=== PATIENT | female | born 1975 | race Caucasian/White ===

== ENCOUNTER → 2016-09-04 | Outpatient (CLI) | payer BC ==
[~2016-09-04] VITALS: Ht 160 cm; Wt 72.7 kg
[~2016-09-04] MED LIST: ALEVE 220MG220 MG PO; CLARITIN 1010 MG/TAB PO; NEURONTIN100 MG/CAP PO; NORCO 325 MG-51 TAB PO; ROBAXIN 75750 MG/TAB PO; ZYRTEC 10MG10 MG PO
[2016-09-04 07:32] VITALS: BP 130/91; PULSE 77
[2016-09-04 08:40] VITALS: BP 123/83; PULSE 85
== END ==
LOC: COL.RAD 07:00
DX: M50.023 Cervical disc disorder at C6-C7 level with myelopathy (principal)
CPT/HCPCS: J1100

== ENCOUNTER → 2017-01-10 | Outpatient (CLI) | payer BC | LOC: COL.RAD 10:29 | DX: Z02.89 Encounter for other administrative examinations (principal) ==

== ENCOUNTER → 2017-01-16 | Outpatient (CLI) | payer BC | LOC: COL.RAD 12:00 | DX: R94.6 Abnormal results of thyroid function studies (principal) ==

== ENCOUNTER 2017-05-03 14:29 | Emergency (ER) | payer BC ==
[~2017-05-03] VITALS: Ht 160 cm; Wt 64.1 kg
[2017-05-03 15:31] LABS: COLLECTION METHOD CLEAN CATCH
[2017-05-03 15:46] LABS: CALCIUM 9.2 mg/dL (8.4-10.2); CREATININE, serum 0.72 mg/dL (0.52-1.25); POTASSIUM 4.3 mmol/L (3.4-5.0)
[2017-05-03 15:54] LABS: BASO % 0.6 % (0.0-2.0); EOS # 0.1 (0.0-0.7); EOS % 0.8 % (0-4.0); GRAN # 4.7 (1.4-6.5); GRAN % 70.2 % (42.2-75.2); HEMOGLOBIN 12.5 g/dl (12.5-16.0); LYMPH # 1.3 (1.2-3.4); LYMPH % 19.5 % (20.0-51.0); MEAN CELL VOLUME 92 fl (80.0-100.0); MEAN CORPUSCULAR HEMOGLOBIN 32 pg (27.0-31.0); MEAN CORPUSCULAR HGB CONC 34 g/dl (33.0-37.0); MEAN PLATELET VOLUME 11.1 fl (7.4-10.4); MONO # 0.6 (0.1-0.6); MONO % 8.7 % (1.7-9.3); PLATELET COUNT 149 K/mm3 (130-400); RED BLOOD COUNT 3.96 M/mm3 (4.10-5.30); WHITE BLOOD COUNT 6.7 K/mm3 (4.8-10.8)
[2017-05-03 16:00] LABS: HEMATOCRIT 36.6 % (37.0-47.0)
[2017-05-03 16:01] LABS: PH 6 (5-8); SQUAMOUS EPITHELIAL None Seen /hpf; URINE APPEARANCE Clear; URINE BACTERIA None Seen /hpf; URINE BILIRUBIN Negative (NEGATIVE); URINE BLOOD Negative (NEGATIVE); URINE COLOR Straw; URINE GLUCOSE Negative (NEGATIVE); URINE KETONE Negative (NEGATIVE); URINE LEUKOCYTE ESTERASE Negative (NEGATIVE); URINE PROTEIN(semi-quant) Negative (NEGATIVE); URINE RBC None Seen /hpf; URINE UROBILINOGEN Negative (NEGATIVE); URINE WBC None Seen /hpf
[2017-05-03] MEDS ORDERED: FLAGYL500 MG PO (17:28)
[2017-05-03] MEDS ORDERED: CIPRO 500MG TA500 MG PO (17:28)
[2017-05-03] MEDS ORDERED: NORCO 325 MG-51 TAB PO (17:39)
[2017-05-03 17:47] VITALS: BP 129/84; PULSE 111; TEMP 98.3
== END 2017-05-03 17:49 | disposition home or self-care (01) ==
LOC: COL.ER 14:29
PROVIDERS: Emergency Medicine
DX: K52.9 Noninfective gastroenteritis and colitis, unspecified (principal); K64.9 Unspecified hemorrhoids; F17.210 Nicotine dependence, cigarettes, uncomplicated
CPT/HCPCS: Q9967

== ENCOUNTER 2017-07-20 23:11 | Emergency (ER) | payer BC ==
[~2017-07-20] VITALS: Ht 160 cm; Wt 64.1 kg
[~2017-07-20 23:11] MED LIST changes: +CIPRO 500MG TA500 MG PO; +FLAGYL500 MG PO
[2017-07-20 23:15] VITALS: BP 135/90; TEMP 98.5
[2017-07-21] MEDS ORDERED: CEPHALEXIN500 M1 PO (00:10)
[2017-07-21] MEDS ORDERED: SEPTRA DS 8001 TAB PO (00:10)
[2017-07-21 00:49] VITALS: PULSE 65
== END 2017-07-21 00:50 | disposition home or self-care (01) ==
LOC: COL.ER 23:11
DX: L03.011 Cellulitis of right finger (principal); F17.210 Nicotine dependence, cigarettes, uncomplicated

== ENCOUNTER → 2018-06-19 | Outpatient (CLI) | payer BC ==
[~2018-06-19] MED LIST changes: +CEPHALEXIN500 M1 PO; +SEPTRA DS 8001 TAB PO
== END ==
LOC: MC.RAD 14:00
DX: Z12.31 Encounter for screening mammogram for malignant neoplasm of breast (principal)

== ENCOUNTER 2018-06-30 20:26 | Emergency (ER) | payer BC ==
[~2018-06-30] VITALS: Ht 160 cm; Wt 79.5 kg
[2018-06-30 20:36] VITALS: BP 127/84; TEMP 97.8
[2018-06-30 21:36] VITALS: PULSE 74
== END 2018-06-30 21:37 | disposition home or self-care (01) ==
LOC: COL.ER 20:26
DX: L25.9 Unspecified contact dermatitis, unspecified cause (principal)

== ENCOUNTER → 2018-11-23 | Outpatient (CLI) | payer BC ==
[~2018-11-23] VITALS: Ht 160 cm; Wt 61.4 kg
[~2018-11-23] MED LIST changes: +CRINONE4% TOP; +TYLENOL 500MG500 MG PO; +[UNRECOGNIZED DRUG - OTHER] TOP
[2018-11-23 10:08] VITALS: BP 109/77; PULSE 76
[2018-11-23 11:15] VITALS: BP 109/68; PULSE 73
--- NOTE | 2018-11-23 11:43 | NUR ---
Pt to front entrance to await ride. Denies complaints at this time. Pt to car per ambulation.
== END ==
LOC: COL.RAD 09:45
DX: R59.0 Localized enlarged lymph nodes (principal); D72.1 Eosinophilia; R14.0 Abdominal distension (gaseous)